=== PATIENT | male | born 1985 | race Caucasian/White ===

== ENCOUNTER 2024-02-09 13:00 | Emergency (ER) | payer BC, SELFPAY ==
[2024-02-09 13:03] VITALS: BP 168/100
[2024-02-09 13:54] VITALS: BMI 29.5
--- NOTE | 2024-02-09 14:24 | ED.GENMED ---
History of Present Illness
General
Chief Complaint: Skin Surface Trauma
Source: patient
Exam Limitations: none
Time Seen by Provider: 02/09/24 14:02
Nursing documentation reviewed up to this point in time: agreed with
History of Present Illness
History of Present Illness:
38-year-old male presents to the emergency room with a finger laceration. Was washing the dishes and a plate broke into large pieces and one of the pieces lacerated his left fourth finger. Came to the ER for assessment. Tetanus up-to-date.
Review of Systems
Review of Systems
All Other Systems: ROS reviewed and negative except as documented in HPI and ROS
Skin: Reports other (Finger laceration)
Phy Exam
Physical Exam
Physical Exam:
General: Well appearing and non-toxic
HEENT: protecting airway
Neck: appears supple
CV: No evidence of cyanosis
Resp: No accessory muscle use
Abd: Non-distended
Extremities: No deformities
Neuro: Alert
Psych: Normal affect
Skin: Patient has minor approximate 1 cm laceration on the lateral aspect of the fourth finger distal to the DIP joint; no involvement of the nailbed, explored to base and bloodless field using a tourniquet and no foreign body noted; laceration is
superficial and well-approximated not gaping not over the joint; he has no deficit in flexion and extension of the digit against resistance
Scores
Heart Failure Risk
Heart Failure Risk Score: Not Applicable
Heart Score for Chest Pain Patients
STEMI patient?: Not applicable
Withdrawal Assessment of Alcohol
Withdrawal Assessment Completed?: Not applicable
Course
Vital Signs
Initial and Last Documented VS:
Initial Vital Signs
Temp Pulse Resp BP Pulse Ox
36.6 C 74 16 168/100 100
02/09/24 13:03 02/09/24 13:03 02/09/24 13:03 02/09/24 13:03 02/09/24 13:03
Last Documented Vital Signs
Temp Pulse Resp BP Pulse Ox
36.6 C 74 16 168/100 100
02/09/24 13:03 02/09/24 13:03 02/09/24 13:03 02/09/24 13:03 02/09/24 13:03
Procedures
Laceration Closure
Left Fourth Finger:
Status of Wound: clean
Size of Wound in cm: 1
Description of Wound Edges: sharp
Preparation: cleaned with saline
Revision/Debridement: routine- no revision
Wound exploration: explored to base- no FB
Type of Closure: Dermabond-skin glue
MDM/Problems Addressed
Differential Diagnosis Includes:
Finger laceration
MDM/Problems Addressed:
38-year-old male presents with a minor finger laceration on a piece of broken dish. No foreign body noted. No signs of tendon involvement. Laceration is well-approximated, superficial, not over the joint�repaired using Steri-Strips and Dermabond.
Tetanus up-to-date. Discharged with instructions regarding return for signs of infection. We did discuss his elevated blood pressure here, will follow-up with PCP.
Acute Exacerbation and/or Progression of Chronic Illness:
Acutely hypertensive�no signs or symptoms of hypertensive emergency no indication for emergent antihypertensive treatment
Acute Exacerbation and/or Progression of Chronic Illness: HTN
*Pulse Oximetry
Patient hypoxic: no
*Critical Care Note
Total Time (30-74mins, 75-104mins- exclusive of procedures): Not Applicable
Data Reviewed
Source: patient
Further Testing Considered But Not Given:
Considered need for an x-ray to evaluate for foreign body but wound superficial and explored to base with no signs of foreign body
ED Attending Note
-
Portions of this chart may have been created with voice recognition software.� Occasional wrong word or��sound alike� substitutions may have occurred due to the inherent limitations of voice recognition software.
Discharge Plan
Departure
Patient Disposition: Home (Routine Discharge)
Date of Disposition: 02/09/24
Time of Disposition: 14:23
Patient with high blood pressure during this ER visit?: Yes
Discharge Problem:
Finger laceration
Instructions: Laceration Repair With Glue (DC)
Activity Restrictions/Additional Instructions:
Thank you for visiting the Emergency Department at [facility].
1. Please schedule a follow up appointment as directed. Call first thing tomorrow morning to make an appointment.
2. If indicated, please take your medications as instructed and indicated on discharge paperwork.
3. If any of your symptoms do not improve, or persist, or become more severe within 6-12 hours, please return to the emergency department for further care.
4. Please return to the emergency department if you develop a headache, neck pain/stiffness, fever greater than 100.4F, chest pain, shortness of breath, persistent nausea, vomiting, slurred speech, difficulty walking, numbness/tingling, weakness,
signs of infection or any other symptoms that are worrisome to you.
Please call [phone] if you have any questions.
Interventions
Interventions:
*Risk Screen - Suicide Last Done: 02/09/24 13:54
*General Assessment Last Done: 02/09/24 13:03
*Neglect/Abuse Screening Last Done: 02/09/24 13:54
ED- Fall Risk Assessment Last Done: 02/09/24 13:54
*ED COVID-19 Vaccine History Last Done: 02/09/24 13:03
ED-Skin Assessment Last Done: 02/09/24 13:54
Discharge Date and Time
Print Language: POLISH
[2024-02-09 14:33] VITALS: BP 165/95
== END 2024-02-09 14:34 | disposition home or self-care (01) ==
LOC: EMR 13:00
PROVIDERS: EMERGENCY PHYSICIAN Emergency Medicine; FAMILY PHYSICIAN Internal Medicine
DX: S61.215A Laceration without foreign body of left ring finger without damage to nail, initial encounter (principal); W45.8XXA Other foreign body or object entering through skin, initial encounter
CPT/HCPCS: 99282; 12001